=== PATIENT | female | born 2005 | race Two or more races ===

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

== ENCOUNTER 2025-02-26 12:49 | Emergency (ER) | payer OTHER ==
[~2025-02-26] VITALS: Ht 157.5 cm; Wt 59.0 kg
[2025-02-26 13:17] VITALS: BP 110/67; O2SAT 98
[2025-02-26] MEDS ORDERED: ONDANSETRON HCL 2 MG/ML VIAL IV ONE (14:00)
[2025-02-26] MEDS ORDERED: 0.9 % SODIUM CHLORIDE 500 ML IV ONE (14:00)
[2025-02-26] MEDS ORDERED: FAMOTIDINE/PF 20 MG/2 ML VIAL IV ONE (14:00)
[2025-02-26] MEDS ORDERED: 0.9 % SODIUM CHLORIDE 500 ML IV SCH (14:00)
[2025-02-26] MEDS ORDERED: ONDANSETRON HCL 2 MG/ML VIAL ONE (14:18)
[2025-02-26] MEDS ORDERED: FAMOTIDINE/PF 20 MG/2 ML VIAL ONE (14:18)
[2025-02-26 15:25] LABS: BASO % 0.3 % (0.1-1.2); EOS # 0.00 (0.04-0.54); EOS % 0.0 % (0.7-7.0); LYMPH # 0.53 (1.18-3.74); LYMPH % 5.5 % (19.3-53.1); MEAN PLATELET VOLUME 11.10 fl (9.4-12.4); MONO # 0.64 (0.24-0.82); MONO % 6.6 % (4.7-12.5); NEUT # 8.40 (1.56-6.13); NEUT % 87.1 % (34.0-71.1); RED CELL DISTRIBUTION WIDTH 13.5 % (11.6-14.4)
[2025-02-26 16:01] LABS: ALT/SGPT 17.0 U/L (12-78); AST/SGOT 12.0 U/L (15-37); BILIRUBIN TOTAL 1.86 mg/dL (0.3-1.2); BUN CREA RATIO 23.0 (7.0-25.0); CREATININE SERUM 0.65 mg/dL (0.55-1.02); GFR 117.42; GLOBULINA 4.0 G/DL (2.4-3.5); GLUCOSE FASTING 98.0 mg/dL (65-100); OSMOLALITY SERUM 273.0 MOSM/KG (275-295)
== END 2025-02-26 20:27 | disposition home or self-care (01) ==
LOC: ER 12:50 → EMR PED 12:51 → ER 12:51 → EMR PED 20:27
PROVIDERS: Pediatrics
DX: K52.89 Other specified noninfective gastroenteritis and colitis (principal); R11.10 Vomiting, unspecified